=== PATIENT | female | born 1990 | race American Indian/Alaskan Native ===

== ENCOUNTER 2018-11-02 10:22 | Outpatient (CLI) | payer BC ==
--- NOTE | 2018-11-03 08:51 | Magnetic Resonance Report ---
BILATERAL BREAST MR WITHOUT AND WITH GADOLINIUM INDICATION: 27-year-old with positive family history, recent left breast pain and a recent left mamm ographic asymmetry. COMPARISONS 08/19/2018 and 08/26/2018 TECHNIQUE: Axial 1.0 mm T1 without, axial high-resolution 2.0 mm T2 and axial 1.0 mm dynamic vibrant high-resolution postcontrast T1 fat saturation sequences on a 1.5 Jeanna magnet. The examination was p erformed with an 8-channel dedicated [place] breast coil. Post-processing with CAD and subtraction was performed on an [employer] workstation. 19 cc of MultiHance was injected without incident for the con trast portion of the exam. Consent was obtained prior to the administration of the contrast. FINDINGS: RIGHT BREAST: Minimal background parenchymal enhancement. No mass or suspicious enhancement.No suspic ious lymph nodes. LEFT BREAST: Minimal background parenchymal enhancement. No mass or suspicious enhancement. No suspic ious lymph nodes. IMPRESSION: Negative study. Recommend routine mammographic screening based on ACS guidelines. BI-RADS 1--Negative Signer Name: Reuben Lindo MD Signed: 11/03/2018 8:47 AM Workstation Name: [id number]
== END 2018-11-02 10:23 | disposition home or self-care (01) ==
LOC: SPVIMAG 10:22
PROVIDERS: ATTEND Surgery
DX: R92.8 Other abnormal and inconclusive findings on diagnostic imaging of breast (principal)
CPT/HCPCS: A9577; C8908; 77049

== ENCOUNTER 2020-05-18 11:09 | Outpatient (CLI) | payer OTHER ==
--- NOTE | 2020-05-21 08:58 | Mammography Report ---
DIGITAL SCREENING MAMMOGRAM WITH CAD, 05/18/2020 CLINICAL INFORMATION / INDICATION: Routine screening mammography. SCREENING MAMMO TECHNIQUE: Digital bilateral 2D mammography was obtained in the craniocaudal and mediolateral obliqu e projections. This examination was interpreted with the benefit of Computer-Aided Detection analysis . COMPARISON: 08/19/2018 FINDINGS: Breast Density: The breasts are heterogeneously dense, which may obscure small masses. No dominant mass, suspicious calcifications, or architectural distortion in the left breast. There is a new cluster of calcifications in the right breast at the 10:00 position anterior depth whi ch will require additional evaluation with magnification views. IMPRESSION: New left breast calcifications as described above which will require additional evaluatio n with magnification views Follow up recommendation: Special View: Mag BI-RADS Category 0: Incomplete. Needs additional imaging evaluation and/or prior mammograms for melany garza. A "normal" or negative report should not discourage follow up or biopsy of a clinically significant f inding. A written summary of these findings will be mailed to the patient. The patient will be entered into a mammography reporting system which will generate a reminder letter for the patient's next appointmen t at the appropriate interval. The [employer] recommends yearly mammograms starting at age 40 and continuing as l britton as a woman is in good health. Breast MRI is recommended for women with an approximate 20-25% or greater lifetime risk of breast cancer, including women with a strong family history of breast or ova cameron cancer or who have been treated for Hodgkin's disease. Signer Name: Emili Maravilla MD Signed: 05/21/2020 8:53 AM Workstation Name: [id number]
== END 2020-05-18 11:10 | disposition home or self-care (01) ==
LOC: SPVWC 11:09
PROVIDERS: ATTEND Surgery
DX: Z12.31 Encounter for screening mammogram for malignant neoplasm of breast (principal)
CPT/HCPCS: 77067

== ENCOUNTER 2020-06-27 14:59 | Outpatient (CLI) | payer OTHER ==
--- NOTE | 2020-06-27 15:57 | Mammography Report ---
DIGITAL DIAGNOSTIC MAMMOGRAM WITH CAD , 06/27/2020 CLINICAL INFORMATION / INDICATION: Abnormal screening mammogram. Screening recall of the right breast for calcifications. The patient also has a personal history of BRCA2 gene mutation. TECHNIQUE: Digital right mammographic imaging was performed. Magnification views were obtained. This examination was interpreted with the benefit of Computer-aided Detection analysis. COMPARISON: Screening mammogram, 05/18/2020 FINDINGS: Breast Density: The breasts are heterogeneously dense, which may obscure small masses. Magnification views of the upper outer right breast were obtained. These confirm a 4 mm cluster of he terogeneous calcifications at the 10:00 position anterior depth. Additionally, there are grouped jenn phous calcifications located approximately 2 cm posterior to this dominant cluster, spanning an area of approximately 3.2 x 2.0 cm. IMPRESSION: 1. Calcifications as described in the upper outer right breast anterior depth which are moderately allen spicious for malignancy. It would be difficult to perform stereotactic guided biopsy of these calcifi cations due to their close proximity to the skin and anterior location. Therefore, needle localizatio n and surgical biopsy are recommended. Because these calcifications are in close proximity to one ano ther, it is likely a single localization wire could be placed to obtain a satisfactory specimen. Follow up recommendation: Biopsy BI-RADS Category 4: Suspicious for Malignancy. A "normal" or negative report should not discourage follow up or biopsy of a clinically significant f inding. A written summary of these findings will be mailed to the patient. The patient will be entered into a mammography reporting system which will generate a reminder letter for the patient's next appointmen t at the appropriate interval. According to the [employer], yearly mammograms are recommended starting at age 40 and continuing as long as a woman is in good health. Breast MRI is recommended for women with an mechelle roximately 20-25% or greater lifetime risk of breast cancer, including women with a strong family his tory of breast or ovarian cancer and women who have been treated for Hodgkin's disease. Signer Name: Emili Maravilla MD Signed: 06/27/2020 3:53 PM Workstation Name: [email or web address]
== END 2020-06-27 15:00 | disposition home or self-care (01) ==
LOC: SPVWC 14:59
PROVIDERS: ATTEND Surgery
DX: R92.1 Mammographic calcification found on diagnostic imaging of breast (principal)

== ENCOUNTER 2020-07-31 12:40 | Outpatient (CLI) | payer OTHER ==
--- NOTE | 2020-07-31 14:59 | Magnetic Resonance Report ---
Bilateral breast MR without and with contrast. History: Screening breast MRI, patient at high risk for breast malignancy based upon family history a nd BRCA2 positive. Comparison: 06/27/2020, 05/18/2020. Technique: Multiplanar multisequence MR images of the breast were obtained before and after the intra venous administration of 18 ml of Clariscan intravenous contrast. Post processing analysis and review was performed on a separate computer workstation. Findings: Breast composition is heterogeneously dense. There is mild background parenchymal enhancement within both breasts. RIGHT BREAST: Located in the right breast at the 9:00 position, 6 cm from the nipple, is a 2.6 x 1.8 x 1.9 cm area of masslike enhancement. There is suspicious non-masslike enhancement which extends 4.1 cm anteriorly towards the nipple as well as 5.5 cm posteriorly. A separate 1.2 x 1.4 cm lobulated ma sslike area located at the 10:00 position, 6 cm from the nipple, is also noted. No evidence of involv ement with the overlying skin or underlying pectoralis muscle. LEFT BREAST: No discrete enhancing mass, dominant focus, or other abnormal enhancement is identified within the left breast. Enlarged right axillary lymph nodes with cortical thickness measuring up to 12 mm. No abnormal left a xillary lymph nodes. No abnormal internal mammary lymph nodes. Impression: There are two focal areas of masslike enhancement within the right breast at the 9:00 position (6 cm from the nipple) and 10:00 position (6 cm from the nipple). Associated abnormal non-masslike enhancem ent is noted extending anteriorly and posteriorly up to 9.6 cm in total dimension, as described above . A targeted ultrasound is recommended with subsequent ultrasound-guided core biopsies if sonographic correlates are identified. If no sonographic correlate is identified, an MRI guided biopsy of the 9: 00 and 10:00 masses would be recommended. Abnormal right axillary lymph node for which a targeted ultrasound is recommended with subsequent ult rasound-guided core biopsy if a correlate is identified. BIRADS 4: Suspicious abnormality. Signer Name: Dayron Mata MD Signed: 07/31/2020 2:54 PM Workstation Name: [id number]
== END 2020-07-31 12:41 | disposition home or self-care (01) ==
LOC: SPVIMAG 12:40
PROVIDERS: ATTEND Surgery
DX: R92.8 Other abnormal and inconclusive findings on diagnostic imaging of breast (principal); R59.0 Localized enlarged lymph nodes
CPT/HCPCS: A9575; C8908; 77049

== ENCOUNTER 2020-08-06 10:14 | Outpatient (CLI) | payer OTHER ==
--- NOTE | 2020-08-06 18:49 | Ultrasound Report ---
ULTRASOUND BREAST RIGHT LIMITED, 08/06/2020 CLINICAL INFORMATION / INDICATION: ABNORMAL MAMMOGRAM. Abnormal MRI TECHNIQUE: Targeted ultrasound evaluation was performed of the area of interest. COMPARISON: Comparison is with multiple recent prior right mammograms as well as breast MRI, FINDINGS: In the 9:00 location of the right breast, approximately 3 cm from nipple, there is a solid round irre gular mass measuring 9 x 8 mm. This is felt to correlate with one of the masses seen on MRI. There is a second taller than wide solid mass measuring 10 x 4 mm in the 9:00 position 3 cm from nipp le also felt to correlate with MRI abnormality. Right axilla was also evaluated. There is one abnormal lymph node in the right axilla. The lymph node is overall enlarged with marked cortical thickening diffusely. Cortical thickness is approximately 8 mm with the entire lymph node measuring 2.5 x 1.6 cm. IMPRESSION: There are 2 solid masses in the right breast at 9:00, 3 cm from nipple that appear to cor relate with abnormal findings in the right breast on recent MRI. Ultrasound-guided biopsy is recommen ded. Both masses are highly suspicious for malignancy. Additionally there is an enlarged abnormal lymph node in the right axilla. The appearance is certainl y worrisome for metastatic disease, given the presence of the solid masses in the right breast at 9:0 0.. I do not have information related to the patient's Covid vaccination history, and the possibility of reactive nodepatient, should be considered if the patient had a recent vaccination in the right a rm . Clinical correlation is recommended. Follow up recommendation: Biopsy BI-RADS Category 5: Highly Suggestive of Malignancy. A normal or "negative" report should not preclude biopsy or follow-up of a clinically suspicious find ing. Signer Name: Amy Sanchez MD Signed: 08/06/2020 6:45 PM Workstation Name: [email or web address]
== END 2020-08-06 10:15 | disposition home or self-care (01) ==
LOC: US 10:14
PROVIDERS: ATTEND Surgery
DX: N63.11 Unspecified lump in the right breast, upper outer quadrant (principal)

== ENCOUNTER 2020-08-14 13:57 | Outpatient (CLI) | payer OTHER ==
--- NOTE | 2020-08-14 17:00 | Ultrasound Report ---
ULTRASOUND-GUIDED RIGHT BREAST BIOPSY x 2 INDICATION: Enhancing lesions on MR with sonographic correlate COMPARISON: Right breast ultrasound 08/06/2020, MR breast 07/31/2020 CONSENT: Procedure was discussed at length in advance with the patient. Possible risks and benefits w ere discussed including the possibility of bleeding. Postbiopsy care was discussed. Opportunity for q uestions was provided. Patient is not on anticoagulant therapy and reports no pertinent allergies. PROCEDURE: Timeout was performed. The larger irregular lesion at 9:00 was first targeted sonographica lly. Using aseptic technique and under local anesthesia, with real-time sonographic guidance, the are a of interest was biopsied. Multiple specimens were obtained with a 14-gauge Bard biopsy device and s ent to pathology for analysis. A U shaped metallic clip was placed. Site was secured. The small or shadowing lesion at 10:00 was then targeted sonographically. Using aseptic technique and under local anesthesia, with real-time sonographic guidance, the area of interest was biopsied. Mult iple specimens were obtained with a 14-gauge Bard biopsy device and sent to pathology for analysis. A Hydromark metallic clip was placed. Site was secured. ULTRASOUND-GUIDED RIGHT AXILLARY LYMPH NODE BIOPSY Thickened lymph node in the right axilla was targeted sonographically. Using aseptic technique and un benjamin local anesthesia, with real-time sonographic guidance, the area of interest was biopsied. Multipl e specimens were obtained with an 18-gauge Achieve biopsy device and sent to pathology for analysis. A U shaped metallic clip was placed. Site was secured. The patient was sent for post biopsy mammogram. Patient tolerated the procedure well and left the dep artment in good condition. IMPRESSION: Successful ultrasound-guided right breast biopsy at 2 sites and right axillary lymph node biopsy Signer Name: Jason Delaney MD Signed: 08/14/2020 4:56 PM Workstation Name: [id number]
--- NOTE | 2020-08-14 17:10 | Mammography Report ---
DIGITAL DIAGNOSTIC MAMMOGRAM WITH CAD CONVENTIONAL, 08/14/2020 CLINICAL INFORMATION / INDICATION: Post ultrasound-guided biopsy x2 and right axillary kaylyn biopsy TECHNIQUE: Digital right mammographic imaging was performed. This examination was interpreted with the benefit of Computer-aided Detection analysis. COMPARISON: Bilateral mammogram 05/18/2020 FINDINGS: Breast Density: The breasts are heterogeneously dense, which may obscure small masses. The 2 clips in the anterior right breast at the 2 site ultrasound-guided biopsy are in the expected l ocations. The height or marked clip is immediately posterior to a group of microcalcifications of int erest on earlier mammogram. A biopsy clip is also seen at the largest visible axillary node. IMPRESSION: Appropriate clip placement Follow up recommendation: Per biopsy results Post biopsy imaging. A "normal" or negative report should not discourage follow up or biopsy of a clinically significant f inding. A written summary of these findings will be mailed to the patient. The patient will be entered into a mammography reporting system which will generate a reminder letter for the patient's next appointmen t at the appropriate interval. According to the [employer], yearly mammograms are recommended starting at age 40 and continuing as long as a woman is in good health. Breast MRI is recommended for women with an mechelle roximately 20-25% or greater lifetime risk of breast cancer, including women with a strong family his tory of breast or ovarian cancer and women who have been treated for Hodgkin's disease. Signer Name: Jason Delaney MD Signed: 08/14/2020 5:05 PM Workstation Name: [id number]
== END 2020-08-14 13:58 | disposition home or self-care (01) ==
LOC: SPVWC 13:57
PROVIDERS: ATTEND Surgery
DX: N63.11 Unspecified lump in the right breast, upper outer quadrant (principal); I89.8 Other specified noninfective disorders of lymphatic vessels and lymph nodes; N64.89 Other specified disorders of breast; Z88.8 Allergy status to other drugs, medicaments and biological substances
CPT/HCPCS: 38505; 88305; 88341; 88342; 88368